=== PATIENT | female | born 1975 | race Caucasian/White ===

== ENCOUNTER 2019-07-06 17:57 | Inpatient (IN) ==
[2019-07-06 19:34] LABS: OCCULT BLOOD 1 POSITIVE (NEGATIVE)
--- NOTE | 2019-07-06 19:49 | PROVIDER DOCUMENTATION ---
HPI-Abdominal Pain/GI Problem - General Chief Complaint: Palpitations Stated Complaint: SOB, DIZZY Time Seen by Provider: 07/06/19 19:28 Source: patient Allergies/Adverse Reactions: Patient Allergies Allergy/AdvReac Type Severity Reaction Status Date / Time No Known Allergies Allergy Verified 01/04/19 22:33 Home Medications: Home Medication List Medication Instructions Recorded Confirmed Last Taken Type NK [No Home Medications] 07/06/19 07/06/19 Unknown History - History of Present Illness-ABD Nature of Presenting Problems: palpitations black stools hx of bone marrow problems Pain Radiation: reports: no radiation Quality of Pain: reports: none Severity in ED: reports: mild Onset/Duration: reports: 3 days ago Timing: reports: still present Activities at Onset: reports: light activity Exposure to sick contacts?: No Modifying Factors: improves with: nothing Associated Symptoms: reports: weakness Last BM: this morning Dark Stools Present?: reports: black Rectal Bleeding: reports: none Rectal Pain: reports: none Emesis Description: reports: none Bruising or Bleeding Gums?: No Similar Symptoms Previously?: No Recently seen or treated by another doctor?: No Review of Systems - Adult - REVIEW OF SYSTEMS - ADULT Constitutional: reports: no symptoms reported, fatique Eyes: reports: no symptoms reported Ears, Nose, Mouth & Throat: reports: no symptoms reported Cardiovascular: reports: palpitations Respiratory: reports: shortness of breath Gastrointestinal: reports: other (melena) Genitourinary: reports: no symptoms reported Musculoskeletal: reports: no symptoms reported Integumentary: reports: no symptoms reported Neurological: reports: no symptoms reported Psychiatric: reports: no symptoms reported Endocrine: reports: no symptoms reported Hematologic/Lymphatic: reports: low blood count Allergic/Immunologic: reports: no symptoms reported Past History - Adult - PAST MEDICAL HISTORY-ADULT Review of Records: reports: Nursing Assessment Review, Medications Reviewed, Social history reviewed & non-contributory. Major Childhood Illnesses: reports: denies history Cardiovascular: reports: denies history Respiratory: reports: denies history Gastrointestinal: reports: denies history Obstetrical/Gynecological: reports: denies history Genitourinary: reports: denies history Musculoskeletal: reports: denies history Neurological: reports: denies history Psychiatric: reports: denies history Endocrine/Immune: reports: denies history Other Conditions: reports: denies history - PRIOR SURGERIES/PROCEDURES Surgical/Procedure History: reports: , cholecystectomy - IMMUNIZATION STATUS Childhood Immunizations: See Nurse Assessment Flu Vaccine: See Nurse Assessment - FAMILY HISTORY Family History: reviewed, not pertinent - SOCIAL HISTORY Smoking: cigarettes Substance Use: none/never Physical Exam-General - PHYSICAL EXAM-ADULT Initial Vital Signs Reviewed: Yes - CONSTITUTIONAL General Appearance: appears well, alert, no apparent distress - EYES Eyes: PERRL/EOMI, pale conjunctivae - HEAD, EARS, NOSE, MOUTH & THROAT HENMT: normocephalic/atraumatic, moist mucous membranes - NECK Neck: full range of motion, supple - RESPIRATORY Respiratory: lungs clear - CARDIOVASCULAR Cardiovascular: regular rate, rhythm - GASTROINTESTINAL (ABDOMEN) Abdominal Exam: soft - LYMPHATIC Lymphatic: no adenopathy - MUSCULOSKELETAL Back Exam: normal inspection Extremity: normal range of motion - SKIN Integumentary: normal turgor, pallor - NEUROLOGIC Neurologic: grossly normal - PSYCHIATRIC Psych/Mental Status: oriented x 3 Progress - PLAN OF CARE/RESULTS Progress/Plan/Lab Results: Vital Signs - 8 hr 07/06/19 18:18 Temperature 98.0 F Pulse Rate 127 H Respiratory Rate 20 Blood Pressure 150/76 O2 Sat by Pulse Oximetry 98 Laboratory Results - last 24 hr 07/06/19 19:29 Stool Occult Blood POSITIVE A Orders Category Date Time Status CBC WITH ELECTRONIC DIFF [HEME] Stat Lab 07/06/19 19:35 Results COMPREHENSIVE METABOLIC PANEL [CHEM] Stat Lab 07/06/19 19:35 Received OCCULT BLOOD SCREEN STOOL PL Stat Lab 07/06/19 19:29 Completed PROTIME WITH INR [COAG] Stat Lab 07/06/19 19:35 Received PTT [COAG] Stat Lab 07/06/19 19:35 Received EKG [EKG] Routine Ther 07/06/19 19:30 Ordered Result Diagrams: 07/06/19 19:35 07/06/19 19:35 Departure - Departure Date of Disposition Decision: 07/07/19 Time of Disposition Decision: 01:06 DIAGNOSIS: GI bleed, Anemia Disposition: ADMITTED INPATIENT 09 Certified Medical Emergency: Emergent Condition: Stable - Critical Care Note This patient required my direct & personal management of CC.: No Attestation - Physician/ MEGA Attestation Patient care was provided by Advanced Practice Provider:: No The physician spent face to face time with patient:: Yes Advanced Practice Provider documentation review:: Supervising physician onsite and consulted in the evaluation and care of this patient. The physician did have a face to face encounter with the patient.
[2019-07-06 19:51] LABS: BASO# 0.02 X1000 (0.0-0.2); BASO% 0.3 % (0.0-0.8); EOS# 0.16 X1000 (0.0-0.7); EOS% 2.3 % (0.0-10.0); HEMATOCRIT 19.9 % (37.0-47.0); IMM GRAN# 0.03 X1000 (0.0-0.04); IMM GRAN% 0.4 % (0.0-0.5); LYMPH# 1.78 X1000 (1.2-3.4); LYMPH% 26.1 % (20.5-51.1); MCH 27.2 PG (27-31); MCHC 29.6 g/dL (33-37); MCV 91.7 FL (81-99); MONO# 0.47 X1000 (0.11-0.59); MONO% 6.9 % (1.7-9.3); MPV 12.9 FL (7.4-10.4); NEUT# 4.35 X1000 (1.4-6.5); PLT 110 X1000 (130-400); RBC 2.17 XMIL (4.2-5.4); RDW 17.6 % (11.5-14.5); WBC 6.81 X1000 (4.8-10.8)
[2019-07-06 19:53] LABS: HEMOGLOBIN 5.9 g/dL (12.0-16.0)
--- NOTE | 2019-07-06 20:03 | EKG Report ---
Test Performed on : 07/06/2019 6:29:29 PM Test Reason : emboli Blood Pressure : / mmHG Vent. Rate : 120 BPM Atrial Rate : 120 BPM P-R Int : 112 ms QRS Dur : 084 ms QT Int : 338 ms P-R-T Axes : 030 047 043 degrees QTc Int : 477 ms Sinus tachycardia. Otherwise normal ECG No previous ECGs available Unconfirmed Result
[2019-07-06 20:05] LABS: INR 1.04; PROTIME 14.1 Seconds (11.0-16.0); PTT 30.2 Seconds (22.3-41.8)
[2019-07-06] MEDS ORDERED: PROTONIX IV ONE (20:12)
[2019-07-06] MEDS ORDERED: SODIUM CHLORIDE 0.9% INJ ONE (20:12)
[2019-07-06] MEDS ORDERED: NS 1,000 ML IV ONE ×2 (20:14→22:08)
[2019-07-06 20:19] LABS: AGAP 8; ALBUMIN 3.1 g/dL (3.5-5.0); ALKALINE PHOSPHATASE 87 U/L (32-104); BUN 25 mg/dL (8-22); CHLORIDE 106 mmol/L (98-107); COSMO 283; CREATININE 0.6 mg/dL (0.5-0.9); ESTIMATED GFR > 60; GLUCOSE 152 mg/dL (70-104); GOT 33 U/L (10-30); GPT 23 U/L (10-36); SODIUM 138 mmol/L (136-145); TCO2 24 mmol/L (25-35); TOTAL PROTEIN 5.8 g/dL (6.3-8.3)
[2019-07-06] MEDS ORDERED: ZOFRAN IV PRN (22:24)
[2019-07-06] MEDS ORDERED: NS 500 ML IV ONE (22:24)
--- NOTE | 2019-07-06 23:16 | HISTORY AND PHYSICAL ---
REASON FOR ADMISSION: Melenic stool for the last 4-5 days. HISTORY OF PRESENT ILLNESS: Ms. Lesley Rosario is a 43-year-old woman with past history of migraines who ran out of her usual antimigraine medication over a week ago and started taking a lot of BC Powder to abort her headaches. Four to 5 days ago, she started noticing some dark stools and had 1 episode of epigastric pain at the onset, but has not had any since then. Two days later, she started noticing that she was having postural lightheadedness and progressively worsening shortness of breath with exertion. She denies any geri hematochezia or bleeding from any other orifice. She admits to having nausea but no vomiting. She denies any other complaints, i.e., chest pain, but does admit to having some palpitations over the last 24 hours whenever she exerts herself, along with simultaneous dyspnea on exertion. No PND or orthopnea. She presented to [facility] and was found to have hemoglobin and hematocrit of 6 and 19, and was then transferred to our facility for GI intervention. REVIEW OF SYSTEMS: Twelve-system review was done. Positive findings per HPI. ALLERGIES: None. MEDICATIONS: She is on some kind of triptan. The patient takes tramadol, Imitrex and vitamin D, and Percogesic sometimes. SOCIAL HISTORY: She smokes 1 pack a day. No alcohol or illicit drug use. PAST SURGICAL HISTORY: Cholecystectomy and . FAMILY HISTORY: Some cirrhosis and type 2 diabetes. No GI history in the family. PAST MEDICAL HISTORY: The patient states she has thrombocytopenia, questionably possible ITP. LABORATORY DATA: White count 6000, hemoglobin and hematocrit 6 and 19, platelet count 110,000. Normal differential. BUN 25, creatinine 0.6, glucose 152, calcium 8, AST 33, ALT 23, albumin 3.1. PT, PTT are normal. PHYSICAL EXAMINATION: GENERAL: Pleasant, morbidly obese woman who is alert and oriented to person, place and time, with normal mood and affect. VITAL SIGNS: Blood pressure is 130/66, heart rate 111, temperature 98.8 degrees, respiratory rate is 20. She is 100% on room air. HEENT: Head is normocephalic, atraumatic. Eyes: PERRL, EOMI. She is anicteric, but pale. ENT and oropharynx exam is grossly normal. No central cyanosis. NECK: Short and thick. No JVD or carotid bruit. No thyromegaly. CHEST: Clear when auscultated, with good air entry both lung hauser. CARDIOVASCULAR: First and second heart sounds are heard. No gallops, murmurs, rubs. Rhythm is regular and she is tachycardic. ABDOMEN: She has truncal obesity with vague minimal epigastric tenderness. No rebound or guarding. Bowel sounds are normal. RECTAL: Exam deferred at this time. EXTREMITIES: Slightly diminished pulse volumes, symmetrical, tachycardic and regular. No edema, clubbing or peripheral cyanosis. NEUROLOGIC: No gross focal deficits. SKIN: Intact. No breakdown, lesion or erythema. MUSCULOSKELETAL: Exam is grossly normal. ASSESSMENT: 1. Acute hemorrhagic anemia secondary to gastrointestinal bleed. 2. Upper gastrointestinal bleed secondary to use of nonsteroidal anti-inflammatory drugs, i.e., BC Powder. 3. 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 PLAN: The patient will be aggressively resuscitated with crystalloids and subsequently 2 units of packed red blood cells. Repeat hemoglobin and hematocrit in the morning, and consider further transfusion based on findings on lab work. We will consult GI to see the patient for very likely EGD in the a.m. with the goal to arrest any persistent bleeding and stage the patient's risk of bleeding. For now, start the patient on IV PPIs and monitor hemoglobin and hematocrit q.6 hours. cc: Silvino Verduzco MD
[2019-07-06] MEDS: SODIUM CHLORIDE 0.9% INJ SCH (23:46)
[2019-07-06] MEDS: PROTONIX IV SCH (23:47)
[2019-07-07] MEDS: NS 1,000 ML IV SCH ×5 (03:57→19:47)
[2019-07-07 07:08] LABS: HEMATOCRIT 20.3 % (37.0-47.0); HEMOGLOBIN 6.4 g/dL (12.0-16.0); MCH 27.8 PG (27-31); MCHC 31.5 g/dL (33-37); MCV 88.3 FL (81-99); MPV 13.5 FL (7.4-10.4); RBC 2.3 XMIL (4.2-5.4); RDW 17.1 % (11.5-14.5); WBC 3.58 X1000 (4.8-10.8)
[2019-07-07 07:11] LABS: AGAP 11; BUN 24 mg/dL (8-22); CALCIUM 7.1 mg/dL (8.8-10.2); CHLORIDE 109 mmol/L (98-107); COSMO 286; CREATININE 0.6 mg/dL (0.5-0.9); ESTIMATED GFR > 60; GLUCOSE 118 mg/dL (70-104); MAGNESIUM 1.7 mg/dL (1.5-2.7); POTASSIUM 3.7 mmol/L (3.5-5.1); SODIUM 141 mmol/L (136-145); TCO2 21 mmol/L (25-35)
[2019-07-07] MEDS: TYLENOL PO PRN ×3 (07:19→19:44)
[2019-07-07 09:08] LABS: BASO# 0.01 X1000 (0.0-0.2); BASO% 0.3 % (0.0-0.8); EOS# 0.07 X1000 (0.0-0.7); EOS% 2.3 % (0.0-10.0); HEMOGLOBIN 6.3 g/dL (12.0-16.0); LYMPH# 1.06 X1000 (1.2-3.4); LYMPH% 34.5 % (20.5-51.1); MCH 27.8 PG (27-31); MCHC 31.5 g/dL (33-37); MCV 88.1 FL (81-99); MONO# 0.19 X1000 (0.11-0.59); MONO% 6.2 % (1.7-9.3); MPV 12.9 FL (7.4-10.4); NEUT# 1.74 X1000 (1.4-6.5); NEUT% 56.7 % (42.2-75.2); PLT 63 X1000 (130-400); RBC 2.27 XMIL (4.2-5.4); RDW 17.4 % (11.5-14.5); RETIC% 5.5 % (0.8-2.1); RETIC-HE 29.2 PG (28.2-36.6); WBC 3.07 X1000 (4.8-10.8)
[2019-07-07 09:30] LABS: IRON SATURATION 8 %; TIBC 339 ug/dL; TOTAL IRON 26 ug/dL (49-151); UNBOUND IRON 313 ug/dL (112-346)
[2019-07-07 09:49] LABS: FERRITIN 10 ng/mL (13-150)
[2019-07-07 09:57] LABS: EOS 4 % (1-10); LYMPHS 30 % (21-51); MONO 6 % (1-9); SEGS 60 % (42-75)
[2019-07-07] MEDS: PROTONIX IV SCH (11:15)
[2019-07-07] MEDS: SODIUM CHLORIDE 0.9% INJ SCH (11:15)
[2019-07-07] MEDS ORDERED: SODIUM CHLORIDE 0.9% INJ SCH (12:30)
[2019-07-07] MEDS ORDERED: NS 500 ML IV ONE ×2 (12:57→14:12)
[2019-07-07] MEDS: PROTONIX 80 MG in NS 80 ML IV SCH ×2 (13:01→23:17)
[2019-07-07 14:04] LABS: HEMATOCRIT 20.7 % (37.0-47.0); HEMOGLOBIN 6.5 g/dL (12.0-16.0)
--- NOTE | 2019-07-07 14:43 | PROGRESS NOTE ---
DATE: 07/07/2019 SUBJECTIVE: This morning Ms. Rosario refers to be doing a lot better. Has not had any more dizziness. She is status post 2 PRBC transfusions. Briefly, Ms. Rosario presented to [place] yesterday because of history of tarry black stools and dizzy spells upon standing up. She is known to have history of pancytopenia, follows up with Dr. West at [facility]. She also gets iron infusions every now and then. She has a history of PCOS with menometrorrhagia. OBJECTIVE: Vital Signs: Her current vitals reveal blood pressure 94/65, pulse of 95, respiration is 20, temperature is 98.1 degrees. The patient is saturating 100%. General: Ms. Rosario is a 43- year-old female, morbidly obese with a BMI of 54.6. She is in bed no distress. HEENT: Mucosa is slightly pale. Anicteric. Acyanotic. Neck: Supple. Chest: Good air entry bilaterally. No crepitations. No rhonchi. Cardiovascular: Regular rate and rhythm. Abdomen: Soft, nontender. Extremities: No pedal edema. ADON: Patient is awake, alert, and oriented. LABORATORY DATA: Hemoglobin is improved from 5.9 to 6.3, platelet is 63,000, WBC is 3.07. Chemistry reviewed and patient's iron is 10, LDH is 188. ASSESSMENT: 1. Pancytopenia. 2. Symptomatic anemia. 3. Melenic stool, most likely due to upper gastrointestinal bleed. 4. Menometrorrhagia. 5. History of polycystic ovary syndrome. 6. Severe iron deficiency, most likely due to chronic blood loss either from the gastrointestinal/genitourinary tract. PLAN: So in general, I think Ms. Rosario is now feeling a lot better after the 2 units. Her hemoglobin is still low at 6.3. We are going to transfuse her 2 more units. We will give her another infusion of iron in the morning. Her platelet count is 63. She is known to have pancytopenia and has extensive workup with Dr. West, so we will just observe this and let her follow up with her primary oncologist after discharge. I did explain my findings and the plan to the patient and the boyfriend who was at the bedside at the time of the encounter. cc: Hussein German MD
--- NOTE | 2019-07-07 16:49 | GASTROENTEROLOGY CONSULTATION ---
DATE: 07/07/2019 REASON FOR CONSULT: GI bleed. HISTORY OF PRESENT ILLNESS: Ms. Rosario is a 43-year-old female, morbidly obese with a history of migraines, low platelets, anemia, and restless legs syndrome presented at [facility] with c/o of dark tarry stools. On admission her H & H was 5.9 and 19.9, she was transferred to [facility] and was transfused 2 units of PRBC's. She was also complaining of right ear pain, dizziness, headache, and shortness of breath on exertion, she mentioned that her right ear pain has been going on for the last 2 days onwards. The patient mentioned that she was out of her migraine medicine and she started taking BC powders and Aleve for her headaches. She almost took 8 packs of BC powder in the last 2 weeks. Four to 5 days back she noticed that she had some dark tarry stools and just had some mild epigastric pain, but has denied any epigastric pain now. She did have some nausea but she has denied vomiting and she has denied noticing any blood in her stools recently. The patient has denied any chest pain, fever, chills. The patient's last menstrual period was a week back and she said it lasted for 7 days. She does have heavy bleeding the first 2 days. The patient is taking medroxyprogesterone to regularize her menstrual cycles. The patient is seeing Dr. Mullen at the [facility] in [place] for her anemia thrombocytopenia. Her last iron infusion was in May 2018. The patient did mention about her restless legs syndrome and was told that she has vitamin B12 deficiency. Patient had her gallbladder surgery in 2010, she was told that she had cirrhosis, but later they found out the she had enlarged and fatty spleen. Her current H & H is 6.5 & 20.7 PAST MEDICAL HISTORY: Migraines, thrombocytopenia, anemia, restless legs syndrome, vitamin B12 deficiency. PAST SURGICAL HISTORY: Cholecystectomy in 2010 and in 2006. ALLERGIES: No known drug allergies. FAMILY HISTORY: Mom had diabetes. Sister had diabetes. Dad had leukemia. No significant GI malignancies. MEDICATION: Patient takes sumatriptan, medroxyprogesterone, letrozole, citalopram, triamcinolone cream, vitamin D3 50,000, and amoxicillin which she was recently prescribed for her ear infection. SOCIAL HISTORY: The patient is . She has 3 kids. She smokes half to 1 pack of cigarettes daily. The patient was a past alcoholic, denied having illicit drug use. REVIEW OF SYSTEMS: As per HPI. Otherwise, 12 point review of system is negative. PHYSICAL EXAMINATION: Vital Signs: Temperature 98.1 degrees, pulse 85, respirations 20, blood pressure 94/65, oxygen saturation 100% on room air. Patient's weight is 318 pounds. BMI is 54.6 kg/m2. General: She is alert, oriented x3, very pleasant and a good historian and in no acute distress. HEENT: Pale conjunctivae. No icterus. PERRL. Neck: Supple. Lungs: Clear to auscultation in the anterior hauser. Cardiovascular: Regular rate and rhythm. No murmurs, rubs, or gallops heard on auscultation. Abdomen: Obese, soft, nontender. Hypoactive bowel sounds heard in all 4 quadrants. Extremities: No clubbing. No cyanosis. Generalized edema noted bilaterally. Pedal pulses 2+ present bilaterally. Neurologic: Alert and oriented x3. Nonfocal. Cranial nerves 2-12 grossly intact. LABORATORY: WBC 3.07, RBC 2.27, hemoglobin 6.5, hematocrit 20.7, platelet count is 63,000. Coagulation: PT is 14.1, INR is 1.04. Sodium 141, potassium 3.7, chloride 109, carbon dioxide 21, anion gap 11, BUN 24, creatinine 0.6, glucose 118, calcium 7.1, magnesium 1.7. Iron 26, TIBC 339, ferritin 10, vitamin B12 448, folate 9.8. TSH 3.06. Her bilirubin yesterday was 0.40, AST 33, ALT 23, alkaline phosphatase 87, albumin 3.1. Occult blood test was positive. IMPRESSIONS: 1. Gastrointestinal bleed. 2. Obesity. 3. Melena. 4. Anemia. 5. Thrombocytopenia. 6. Restless legs syndrome. 7. Migraines. PLAN: The patient's hemoglobin today is 6.5 and 20.7. She has so far received 3 units of packed red blood cells. Her platelet count is 63,000. We have out a standing order to transfuse 1 unit of PRBC's if the patient's Hemoglobin is less than 7 mg/dl. The plan is to do an EGD tomorrow to rule out the cause of anemia. We have also ordered an ultrasound of the abdomen to evaluate for cirrhosis due to her low platelet count and hepatitis panel to evaluate elevated liver enzymes. We have ordered IV Protonix drip at 10mL/h. The patient is also receiving IV fluids, normal saline at 150 mL per hour. We will continue to monitor her CBC and BMP. The patient was counseled to quit using goody powders completely. Counseled to quit smoking as well. Patient was encouraged to try to loose weight. Further plan of care will be based on the EGD findings. Discussed the risks, benefits and alternatives of the procedure, patient acknowledges understanding of the plan of care. This plan was discussed with Dr. Zendejas. Thank you for your consult. Please call us for any further questions or concerns. Dictated by MAGALY Chau for Hair Zendejas MD cc: Hair Zendejas MD I have seen and examined the patient myself and I agree with the above plan of care. I discussed the above plan of care with the patient and family at bedside and all questions were answered. Please call us with any further questions or concerns. [facility]
--- NOTE | 2019-07-07 17:14 | Diag Imaging Result Doc PS360 ---
EXAM: US ABDOMEN-COMPLETE 07/07/2019 HISTORY: eval for cirrhosis, patient has low platelets TECHNIQUE: Abdominal ultrasound COMMENT: The visualized portions of the body of the pancreas are within normal limits. The liver is heterogeneous in echotexture. There is very poor detail seen in portions of the liver. There is antegrade flow in the portal vein. There is no evidence of biliary dilatation the common bile duct measuring less than 5 mm. The spleen is enlarged measuring over 17.6 cm. There are no abnormal fluid collections. The kidneys are without evidence of hydronephrosis or mass. The visualized portions of the aorta and inferior vena cava are within normal limits. The gallbladder is surgically absent. IMPRESSION: Technically suboptimal study. Splenomegaly. Cirrhosis. Electronically signed by Rey eTresa 07/07/2019 5:12 PM
[2019-07-07 23:07] LABS: HEMATOCRIT 24.4 % (37.0-47.0); HEMOGLOBIN 7.7 g/dL (12.0-16.0)
[2019-07-08] MEDS: NS 1,000 ML IV SCH ×4 (02:19→23:56)
[2019-07-08 07:31] LABS: HEMATOCRIT 23.7 % (37.0-47.0); HEMOGLOBIN 7.5 g/dL (12.0-16.0); MCHC 31.6 g/dL (33-37); MCV 88.4 FL (81-99); MPV 12.9 FL (7.4-10.4); RBC 2.68 XMIL (4.2-5.4); RDW 17.2 % (11.5-14.5); WBC 2.11 X1000 (4.8-10.8)
[2019-07-08] MEDS ORDERED: DIPRIVAN 1% ONE ×3 (07:46→09:28)
[2019-07-08] MEDS ORDERED: XYLOCAINE-MPF 2% ONE (07:47)
[2019-07-08] MEDS ORDERED: VENOFER 300 MG in NS 250 ML IV ONE (08:00)
[2019-07-08] MEDS ORDERED: ROBINUL ONE (08:57)
[2019-07-08] MEDS ORDERED: ZOFRAN ONE (08:57)
[2019-07-08] MEDS ORDERED: PEPCID ONE (08:58)
--- NOTE | 2019-07-08 09:41 | ENDOSCOPY OPERATIVE NOTE ---
[facility] ENDOSCOPY OPERATIVE NOTE , PATIENT: Lesley Rosario ADMISSION DATE: 07/08/2019 [id number] [facility] 1975 [id number] EGD PROCEDURE REPORT PROCEDURE DATE: 07/08/2019 SURGEON: Anil Clarke MD STATUS: inpatient OFFICE TECHNOLOGY PROFESSOR: PREOPERATIVE DIAGNOSIS: The patient is a 43 yr old female here for an EGD due to melena and anemia i n setting of probable cirrhosis and copious NSAID use.. PROCEDURE PERFORMED: EGD w/ band ligation of varices MEDICATIONS: Per Anesthesia TOPICAL ANESTHETIC: none CONSENT: The patient understands the risks and benefits of the procedure and understands that these r isks include, but are not limited to: sedation, allergic reaction, infection, perforation and/or bleeding. Alternative means of evaluation and treatment include, among others: physical exam, x-rays, and/or surgical intervention. The patient elects to proceed with this endoscopic procedure. HISORY AND PHYSICAL: 07/08/2019 DESCRIPTION OF PROCEDURE: During intra-op preparation period all mechanical and medical equipment was checked for proper function. Hand hygiene and appropriate measures for infection prevention was taken. After the risks, benefits and alternatives of the procedure were thoroughly explained, Informed consent was verified, confirmed and timeout was successfully executed by the treatment team. The patient was anesthetized with topical anesthesia and the [id number] ([id number]) endoscope was introduced through the mouth and advanced to the second portion of the duoden um. Retroflexion was performed in the stomach and revealed no abnormalities. The gastroscope was then slowly withdraw n and removed. ESOPHAGUS: There were 3 columns of Grade III varices were found in the distal esophagus. There was e vidence of a red brandin sign. Bleeding prevention was performed by placing four bands with incomplete eradication of va rices. STOMACH: Three non-bleeding, punctate and clean-based ulcers ranging between 3-5 mm in size were foun d in the gastric antrum. Moderate gastritis (inflammation) was found in the gastric antrum. Mild portal hypertensive gastropathy. DUODENUM: The duodenum was normal. SPECIMENS REMOVED: No ADVERSE EVENTS: There were no complications. POSTOPERATIVE DIAGNOSIS: ESOPHAGUS: There were 3 columns of Grade III varices were found in the distal esophagus. There was e vidence of a red brandin sign. Bleeding prevention was performed by placing four bands with incomplete eradication of va rices. STOMACH: Three non-bleeding, punctate and clean-based ulcers ranging between 3-5 mm in size were foun d in the gastric antrum, which likely represents source of melena. Moderate gastritis (inflammation) was found in th e gastric antrum. Mild portal hypertensive gastropathy. DUODENUM: The duodenum was normal. RECOMMENDATIONS: Advance diet as tolerated Recommend pantoprazole 40mg PO BID Avoid NSAIDs and aspirin Repeat outpatient EGD per banding proctol in 2-3 weeks Iron replacement therapy Follow-up with GI in 1-2 weeks after discharge Will sign off. Please call with questions REPEAT EXAM: Return in 2 weeks for EGD. nAil Clarke MD eSigned: Anil Clarke MD 07/08/2019 9:40 AM cc: PATIENT NAME: Lesley Rosario MR#: [id number]
[2019-07-08] MEDS: TYLENOL PO PRN (11:00)
[2019-07-08] MEDS: PROTONIX PO SCH ×2 (11:07→23:45)
[2019-07-08] MEDS ORDERED: PROTONIX IV SCH (12:04)
[2019-07-08 12:27] LABS: HEPATITIS PROFILE ACUTE SEE COMMENTS
--- NOTE | 2019-07-08 15:59 | PROGRESS NOTE ---
DATE: 07/08/2019 SUBJECTIVE: This morning Ms. Rosario referred to be doing fairly okay. Denies any new complaints. She just finished EGD with Dr. Clarke. OBJECTIVE: Vital signs: Blood pressure is 133/104, pulse of 106, respiration is 18, temperature is 98.3 degrees. General: Ms. Rosario is a 43-year-old female, morbidly obese with a BMI of 54.3. She is in bed in no distress. HEENT: Mucosa is pink and moist. Anicteric. Acyanotic. Neck: Supple. Chest: Good air entry bilateral. There were no crepitations, no rhonchi. Cardiovascular: Regular rate and rhythm. GI/Abdomen: Soft, minimally tender in the epigastrium. Bowel sounds were present. CHARITY FUNDRAISER: Patient is awake, alert, and oriented. There is no focal neurological deficit. LABORATORY DATA: 1. Today WBC is 2.11, hemoglobin is 7.5, platelet count of 54. No chemistry this morning. 2. Hepatitis panel is nonreactive. IMAGING STUDIES: 1. An ultrasound of the abdomen shows splenomegaly with cirrhosis of the liver. 2. The EGD report shows that there were 3 columns of grade 3 varices found in the distal esophagus. There was evidence of Red Antonio sign. There were 4 bands placed with incomplete eradication of the varices. The stomach had 3 non bleeding punctate and clean-based ulcers in the gastric antrum, which is presumed to be likely the source of moderate gastritis in the gastric antrum. There was mild portal hypertensive gastropathy. ASSESSMENT: 1. Pancytopenia, most likely due to cirrhosis of the liver. 2. Cirrhosis of the liver of unclear etiology for now. The patient denies any alcohol use and viral serologies are negative. It is reasonable to presume this is probably due to fatty liver disease. However, other etiologies will need to be ruled out. The patient will follow up with Dr. Clarke for outpatient evaluation and management. 3. Cirrhosis of the liver complicated with portal hypertension, splenomegaly and pancytopenia with MELD score of 7. 4. Esophageal varices with portal hypertensive gastropathy found on esophagogastroduodenoscopy. The patient is status post bands placement on the varix. Unfortunately, this was not completely eradicated as per the report. We will find out from Gastroenterology if they want the patient to be on any beta taisha, and the patient has been advised to follow up in about 2 to 3 weeks for repeat of the procedure. 5. Gastric ulcer, most likely the source of the melenic stool. The patient is currently on proton pump inhibitor. 6. History of menometrorrhagia. 7. Polycystic ovarian syndrome noted. 8. Severe iron deficiency, most likely due to blood loss from gastrointestinal and the genitourinary tract. Iron has been replaced and we will continue with oral iron replacement. PLAN: So in general, I think Ms. Rosario is currently stable. She just finished her procedure. Her hemoglobin and hematocrit has improved some; it is currently 7.5. She is status post 4 units of PRBC transfused. We are going to continue with the current recommendations from GI. If her hemoglobin and hematocrit remain stable for tomorrow, she will be discharged, and she will follow up with Dr. Clarke for outpatient evaluation and management of the cirrhosis of the liver. cc: Hussein German MD
[2019-07-08] MEDS: PERIDEX MT SCH (23:45)
[2019-07-09] MEDS: NS 1,000 ML IV SCH ×2 (01:41→06:56)
[2019-07-09 07:29] LABS: HEMATOCRIT 23.6 % (37.0-47.0); HEMOGLOBIN 7.5 g/dL (12.0-16.0); INR 1.24; MCH 28.6 PG (27-31); MCHC 31.8 g/dL (33-37); MCV 90.1 FL (81-99); MPV 13.4 FL (7.4-10.4); PROTIME 15.8 Seconds (11.0-16.0); RBC 2.62 XMIL (4.2-5.4); RDW 17.2 % (11.5-14.5); WBC 2.74 X1000 (4.8-10.8)
[2019-07-09 07:54] LABS: AGAP 10; ALB/GLOB RATIO 1.1; ALBUMIN 2.7 g/dL (3.5-5.0); ALKALINE PHOSPHATASE 80 U/L (32-104); BUN 15 mg/dL (8-22); CALCIUM 7.3 mg/dL (8.8-10.2); CHLORIDE 110 mmol/L (98-107); COSMO 287; CREATININE 0.7 mg/dL (0.5-0.9); ESTIMATED GFR > 60; GLUCOSE 124 mg/dL (70-104); GOT 37 U/L (10-30); GPT 24 U/L (10-36); POTASSIUM 3.7 mmol/L (3.5-5.1); SODIUM 143 mmol/L (136-145); TCO2 23 mmol/L (25-35); TOTAL BILIRUBIN 0.42 mg/dL (0.20-1.00); TOTAL PROTEIN 5.1 g/dL (6.3-8.3)
[2019-07-09] MEDS ORDERED: FERROUS SULFATE PO SCH (09:00)
[2019-07-09] MEDS ORDERED: PERICOLACE PO SCH (09:00)
[2019-07-09] MEDS: PROTONIX PO SCH (09:07)
[2019-07-09] MEDS: PERIDEX MT SCH (09:07)
[2019-07-09 15:25] VITALS: BP 123/48
--- NOTE | 2019-07-10 00:38 | DISCHARGE SUMMARY ---
ADMISSION DATE: 07/06/2019 DISCHARGE DATE: 07/09/2019 DISPOSITION: Home. FOLLOW-UP: 1. . MAGALY Gee. 2. Dr. Clarke. PRIMARY CARE PROVIDER: MAGALY Ordonez. CONSULTATION DURING THIS ADMISSION: GI was consulted, patient was seen by Dr. Clarke. INVASIVE PROCEDURES PERFORMED: EGD was done by Dr. 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 There was also ulcers in the stomach associated with gastritis and mild portal hypertensive gastropathy. ADMISSION DIAGNOSES: 1. Acute hemorrhagic anemia secondary to gastrointestinal bleed. 2. Upper gastrointestinal bleed due to nonsteroidal drugs. 3. 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 DIAGNOSES AT DISCHARGE: 1. Pancytopenia, most likely due to cirrhosis of the liver. 2. Cirrhosis of the liver of unclear etiology, complicated with mild portal hypertension, splenomegaly, esophageal viruses, and pancytopenia with MELD score of 7. 3. Esophageal viruses with portal hypertensive gastropathy found on esophagogastroduodenoscopy. Patient is status post bands placement on the varix. She will follow up with Dr. Clarke to repeat the EGD in 2 to 3 weeks. 4. Gastric ulcers, presumably the source of the melenic stools. 5. Gastrointestinal bleed on admission. The patient is status post 4 packed red blood cells transfusions, hemoglobin and hematocrit is stable. 6. History of menometrorrhagia. 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 7. Polycystic ovarian syndrome, noted. 8. Severe iron deficiency, most likely due to chronic blood loss from gastrointestinal and genitourinary tracts. 9. Morbid obesity with BMI of 54.6 with management advised. 10. Wax in the right ear. DISCHARGE MEDICATIONS: 1. Iron sulfate 325 b.i.d. 2. Eleanor-Colace 1 tab b.i.d. 3. Pantoprazole 40 mg q.12 hours. 4. Wax ear drops in the right ear. PRESENTING COMPLAINT: Melenic stool for the last 4 or 5 days. HISTORY OF PRESENTING COMPLAINT: Ms Rosario is a 43-year-old morbidly obese, female with history of migraine who uses [id number] pain medications. Came to the emergency department because of a 5-day history of melenic stool. Ms. Rosario also refers that she has history of menometrorrhagia and normally follows up with an [employer]. She has polycystic ovarian syndrome as well. Upon presenting to the emergency department, she was evaluated and was found to have hemoglobin level of 5.9. She was immediately evaluated and group and crossmatched. She was admitted for further medical care. HOSPITAL COURSE: Ms Rosario was admitted to the medical floor. She was transfused a total of 4 packed red blood cells. H H improved from 5.9 to 7.5 at the time of the discharge. She was also given 1 infusion of Venofer. Her investigation reveals severe iron deficiency with ferritin of 10, % saturation was 8 with iron level 26. Ms. Rosario was also found to be pancytopenic. She said she normally follows up with Dr. West in [facility] for this, but has never been told the reason why she is pancytopenic. Her ultrasound over here did reveal that she has cirrhosis of the liver associated with splenomegaly. Ms Rosario denies any alcohol use and her viral hepatitis serology is negative. It is presumed that she has probably fatty liver that led into cirrhosis. However, other potential etiologies, including autoimmune and metabolic disorders needs to be ruled out, which Ms Rosario has been advised to follow up with Dr. Clarke for a thorough outpatient investigation. Ms Rosario subsequently underwent EGD. Per the report, about 3 varix were found in the distal esophagus, bands were applied. She also did have some ulcers in the stomach, which Dr. Clarke seems to think that was the culprit for the bleeding. Postoperatively, Ms. Rosario continues to be stable. She has been able to tolerate her diet. She is advised to stay away from the [facility]. She is being discharged in stable condition. She is going to follow up with her primary care provider, Dr. Clarke and Dr. Mullen from [facility]. Current vitals at the time of the dictation, blood pressure is 145/55, pulse is 86, respiration is 20, temperature 98.6 degrees. TIME SPENT: The time spent for discharge is 37 minutes. cc: MD Heather Urbano CRNP
--- NOTE | 2019-07-12 08:06 | GASTROENTEROLOGY PROGRESS NOTE ---
DATE: 07/09/2019 SUBJECTIVE: Ms. Rosario is a 43-year-old female resting in bed. Denied any nausea or vomiting, or abdominal pain. She also denies any bowel movements today. OBJECTIVE: Vital Signs: Temperature 98.3 degrees, pulse 88, respirations 22, blood pressure 137/75, and oxygen saturation 97% on room air. Her weight is 318 pounds. BMI is 54.6 kg/m2. General: She is alert and oriented x3 and in no acute distress. HEENT: Pale conjunctivae. No icterus. PERRL. Neck: Supple. Lungs: Clear to auscultation in the anterior hauser. Cardiovascular: Regular rate and rhythm. Abdomen: Obese, soft, and nontender. Hypoactive bowel sounds heard in all 4 quadrants. Extremities: No clubbing. No cyanosis. Generalized edema noted bilaterally. Pedal pulses 2+ present bilaterally. Neurological: Alert and oriented x3. LABORATORY DATA: WBCs 2.74, RBC 2.62, hemoglobin 7.5, hematocrit 23.6, and platelet count is 50,000. PT 15.8, INR is 1.24, sodium 143, potassium 3.7, chloride 110, carbon dioxide 23, anion gap 10, BUN 15, creatinine 0.7, glucose 124, calcium 7.3, total bilirubin 0.42, AST 37, ALT 24, alkaline phos 80. Abdominal ultrasound on 07/07/2019 showed splenomegaly and cirrhosis. IMPRESSION AND PLAN: GI bleed Obesity Melena Anemia Thrombocytopenia Restless leg syndrome Migraine PLAN: The patient has so far received 4 units of packed red blood cells. Her hemoglobin today is 7.5 and 23.6. An EGD was done yesterday, and the findings were grade 3 erosive esophagus in the distal esophagus, evidence of red brandin sign, Bleeding prevention was performed by placing 4 bands with incomplete eradication of varices. Three non-bleeding, punctate and clean-based ulcers ranging between 3-5 mm in size were found in the gastric antrum. Moderate gastritis was found in the gastric antrum. Mild portal hypertensive gastropathy. Duodenum was normal. The patient is going to get discharged today. We will follow her up as an outpatient i 1 to 2 weeks This plan was discussed with Dr. Seth. Please call us for any further questions or concerns. Dictated by MAGALY Chau for Marilin Seth MD cc: Marilin Seth MD [facility]
== END 2019-07-09 16:55 | disposition home or self-care (01) | DRG 378 ==
LOC: P.ED 17:57 → SUATTDRO 21:14 → 4N 21:14
PROVIDERS: ATTEND Internal Medicine